=== PATIENT | female | born 1995 | race African-American/Black ===

== ENCOUNTER 2023-06-15 11:49 | Emergency (ER) | payer SELFPAY ==
[2023-06-15 13:35] LABS: Pregnancy Test - Urine (BHCG) Negative (Negative); Pregu Control Background? CLEAR/WHITE (CLR/WHITE); Pregu Control Bar Appear? YES (CONTROL BAR); Specific Gravity 1.018 (1.002-1.036)
[2023-06-15 19:18] LABS: Chlam.trachomatis by PCR,Urine Not Detected (NotDetected); GC N.gonorrhoeae PCR,UrineVOID Not Detected (NotDetected)
== END 2023-06-15 14:00 | disposition home or self-care (01) ==
LOC: ERS 11:49
DX: N89.8 Other specified noninflammatory disorders of vagina (principal); F17.290 Nicotine dependence, other tobacco product, uncomplicated
CPT/HCPCS: 81025; 87480; 87491; 87510; 87591; 87660; 99284

== ENCOUNTER 2024-03-10 08:02 | Emergency (ER) | payer BC, SELFPAY | END 2024-03-10 08:53 | disposition home or self-care (01) | LOC: ERS 08:02 | DX: M25.571 Pain in right ankle and joints of right foot (principal); F17.290 Nicotine dependence, other tobacco product, uncomplicated | CPT/HCPCS: 99283 ==